=== PATIENT | female | born 1975 | race African-American/Black ===

== ENCOUNTER 2021-11-26 23:02 | Emergency (ER) | payer OTHER ==
[~2021-11-26] VITALS: Ht 167.6 cm; Wt 71.7 kg
[~2021-11-26 23:02] MED LIST: GABA-532 PO; OLME1TAB26 PO; OXYC-133 PO; OXYC30TA2 PO
--- NOTE | 2021-11-26 23:02 | NUR ---
patient brought in by wheel chair to bed 2A, patient states she has right ankle pain due to trauma. patient states she slipped and fell at the gym
--- NOTE | 2021-11-26 23:06 | NUR ---
Dr Caro at bedside
--- NOTE | 2021-11-26 23:28 | NUR ---
exterior interior specialist into do imaging at bedside.
[2021-11-26] MEDS ORDERED: IBUPROFEN 800 MG TABLET PO ONE (23:30)
[2021-11-26] MEDS ORDERED: IBUPROFEN 800 MG TABLET ONE (23:31)
[2021-11-27] MEDS ORDERED: OXYC-128 PO (00:50)
--- NOTE | 2021-11-27 01:00 | NUR ---
Patient discharged to home in stable condition. Written and verbal after care instructions given. Patient verbalizes understanding of instructions. Stressed follow up or return to ER for worsening s/s.
[2021-11-27 01:16] VITALS: BP 100/63
== END 2021-11-27 01:00 | disposition home or self-care (01) ==
LOC: ER 23:02
DX: S93.601A Unspecified sprain of right foot, initial encounter (principal); W18.41XA Slipping, tripping and stumbling without falling due to stepping on object, initial encounter; Y92.89 Other specified places as the place of occurrence of the external cause
CPT/HCPCS: 73630; A4663

== ENCOUNTER 2021-11-27 11:36 | Inpatient (IN) | payer OTHER ==
[~2021-11-27] VITALS: Ht 168.9 cm; Wt 69.9 kg
[~2021-11-27 11:36] MED LIST changes: +OXYC-128 PO
--- NOTE | 2021-11-27 12:32 | NUR ---
PT IS IN ROOM #1B. DR ELLIOTT EVALUATED THE PT.
[2021-11-27 12:56] LABS: HEMATOCRIT 34.6 % (31.2-41.9); MEAN CORPUSCULAR HEMOGLOBIN 31.5 uug (24.7-32.8); PLATELET COUNT (AUTO) 285 K/uL (179-408)
[2021-11-27 13:00] LABS: CARBON DIOXIDE 27 mmol/L (21-32); CHLORIDE 103 mmol/L (98-107); CREATININE 1.1 mg/dL (0.6-1.3); GLUCOSE 88 mg/dL (74-106); POTASSIUM 3.3 mmol/L (3.5-5.1); UREA NITROGEN, BLOOD 19 mg/dL (7-18)
[2021-11-27 13:06] LABS: ALANINE AMINOTRANSFERASE 18 U/L (14-59); ALKALINE PHOSPHATASE 58 U/L (50-136); ASPARTATE AMINOTRANSFERASE 12 U/L (15-37); BILIRUBIN,DIRECT 0.2 mg/dL (0.0-0.2); BILIRUBIN,TOTAL 0.9 mg/dL (0.2-1.0); TOTAL PROTEIN, SERUM 7.2 g/dL (6.4-8.2)
[2021-11-27 13:07] LABS: ACETAMINOPHEN < 2.0 ug/mL (10-30); ETHANOL < 3 MG/DL (0-0)
[2021-11-27 13:25] LABS: *BILIRUBIN,URIN NEGATIVE (NEGATIVE); *BLOOD, URINE NEGATIVE (NEGATIVE); *CLARITY,URINE CLEAR (CLEAR); *COLOR,URINE YELLOW (YELLOW); *KETONES,URINE NEGATIVE (NEGATIVE); *UROBILINOGEN,URINE 0.2 E.U./dl (NORMAL); LEUKOCYTE ESTERASE ,URINE NEGATIVE (NEGATIVE); NITRITE, URINE NEGATIVE (NEGATIVE); PH,URINE 7.5 (5.0-8.0); UGLUCOSE NEGATIVE (NEGATIVE)
[2021-11-27 13:39] LABS: THYROID STIMULATING HORMONE 0.778 mIU/mL (0.358-3.740)
[2021-11-27 13:48] LABS: *AMPHETAMINE, URINE NEGATIVE (NEGATIVE); *CANNABINOID, URINE NEGATIVE (NEGATIVE); *COCCAINE, URINE NEGATIVE (NEGATIVE); *OPIATE, URINE NEGATIVE (NEGATIVE); *PHENCYCLIDINE SCREEN,URINE NEGATIVE (NEGATIVE)
[2021-11-27] MEDS ORDERED: ACETAMINOPHEN 650 MG/20.3 ML LIQUID UDC PO ONE (15:30)
[2021-11-27] MEDS ORDERED: ACETAMINOPHEN ES 500 MG TABLET ONE (16:01)
--- NOTE | 2021-11-27 19:06 | NUR ---
RECEIVED REPORT FROM TIFFANIE. PT NOTED TO BE IN BED, NO SOB OR LABORED BREATHING, AFEBRILE. DENIES ANY PAIN/DISCOMFORT. A/O X4.
--- NOTE | 2021-11-27 20:35 | NUR ---
ASSISTED PT TO USE BED MEI. WELL TOLERATED.
--- NOTE | 2021-11-27 21:08 | NUR ---
Received report from Herlinda in ER for upcoming admission to Med surg.
--- NOTE | 2021-11-27 21:12 | NUR ---
GAVE REPORT TO SHAUN AREVALO.
--- NOTE | 2021-11-27 21:28 | NUR ---
Pt. admitted to MED SURG , under care of Dr. NORTON Belongs List completed
[2021-11-27] MEDS ORDERED: OXYCODONE/APAP 5-325 MG TABLET PO PRN (21:30)
[2021-11-27] MEDS ORDERED: GABAPENTIN 100 MG CAPSULE PO SCH (21:30)
--- NOTE | 2021-11-27 21:35 | NUR ---
Patient admitted to [facility]. AAO x4. C/O severe pain to neck, radiating to BUE and numbness in her fingertips. States she has severe pain to back as well and feels very stiff. Throbbing to right foot site, caty wrap in place. 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 Noted with hypotension, PO fluids provided and placed in Trendelenburg. No Chest pain or SOB at this time.
[2021-11-27 21:45] VITALS: BP 86/51
[2021-11-27] MEDS ORDERED: ACETAMINOPHEN 325 MG TABLET PO PRN (21:45)
[2021-11-27] MEDS ORDERED: ONDANSETRON 4 MG/2 ML VIAL IV PRN (21:45)
[2021-11-27] MEDS ORDERED: MAGNESIUM HYDROXIDE 30 ML LIQUID UDC PO PRN (21:45)
[2021-11-27] MEDS ORDERED: TEMAZEPAM 7.5 MG CAPSULE PO PRN (21:45)
--- NOTE | 2021-11-27 22:30 | NUR ---
Blood pressure remains low. B/p at 86/51. PO fluids provided, placed in Trendelenburg. Dr. Paulson made aware with orders for one time 500ml bolus of NS.
[2021-11-27] MEDS ORDERED: IV NORMAL SALINE 500 ML IV ONE (22:45)
[2021-11-28] VITALS (7 sets, daily range): BP systolic 85–102; BP diastolic 53–61
[2021-11-28] MEDS ORDERED: IV NS 1000 ML 1,000 ML IV ONE ×2 (00:30→06:45)
[2021-11-28] MEDS ORDERED: MIDODRINE HCL 5 MG TABLET PO SCH (00:30)
--- NOTE | 2021-11-28 00:30 | NUR ---
Patient B/P remains at 89/53. Asymptomatic. Dr. Lopez made aware with orders for one time Midodrine 10mg, 1 L NS bolus, and once SBP above 90 maintain NS at 100cc/hr. Orders noted and carried out.
--- NOTE | 2021-11-28 01:45 | NUR ---
B/P is 94/54 at this time, continued to be asymptomatic. Patient is continent, noted with vianey colored urine.
[2021-11-28] MEDS: IV NS 1000 ML 1,000 ML IV PRN ×2 (02:01→13:24)
[2021-11-28 06:28] LABS: HEMATOCRIT 30.5 % (31.2-41.9); MEAN CORPUSCULAR HEMOGLOBIN 31.9 uug (24.7-32.8); MEAN CORPUSCULAR VOLUME 91.7 fL (75.5-95.3); PLATELET COUNT (AUTO) 268 K/uL (179-408)
--- NOTE | 2021-11-28 06:30 | NUR ---
Patient remains asymptomatic. Continues with b/P 80/46 with pulse of 72. Dr. Lopez made aware with new orders for 1L NS bolus and start Midodrine 10mg po TID and hold for SBP above 120. Orders noted and carried out.
[2021-11-28 06:48] LABS: BILIRUBIN,TOTAL 0.8 mg/dL (0.2-1.0); CREATININE 0.9 mg/dL (0.6-1.3); MAGNESIUM 1.6 mg/dL (1.8-2.4); PHOSPHOROUS 3.5 mg/dL (2.5-4.9); POTASSIUM 3.2 mmol/L (3.5-5.1); TOTAL PROTEIN, SERUM 5.9 g/dL (6.4-8.2)
--- NOTE | 2021-11-28 07:54 | NUR ---
awake, alert and oriented, states feels slightly better, not as stiff as yesterday, able to turn to sides, c/o headach- medicated with Tylenol as ordered prn, BP 80/46, denies of any dizziness, will continue to monitor, safety measures maintained, call light within reach
[2021-11-28] MEDS ORDERED: MAGNESIUM OXIDE 400 MG TABLET PO ONE (09:00)
[2021-11-28] MEDS ORDERED: POTASSIUM CHLORIDE 20 MEQ TAB.PRT.SR PO ONE (09:00)
[2021-11-28] MEDS: MIDODRINE HCL 5 MG TABLET PO SCH ×3 (09:00→17:27)
[2021-11-28] MEDS ORDERED: OXYCODONE HCL 10 MG TAB.SR.12H PO SCH (09:00)
--- NOTE | 2021-11-28 12:00 | NUR ---
BP 91/61, asymptomatic, continue to monitor
--- NOTE | 2021-11-28 16:30 | NUR ---
seen by Dr Blair- aware of low BP- pt is being discharge today and driving home
--- NOTE | 2021-11-28 18:27 | NUR ---
discharge instructions given- verbalized understanding, BP 102/59, able to move legs and move better, saline lock removed- no swelling/redness noted on site
--- NOTE | 2021-11-28 19:15 | NUR ---
escorted to car per w/c in stable condition with all belongings
[2021-11-28] MEDS ORDERED: DOCUSATE SODIUM 100 MG CAPSULE PO SCH (21:00)
== END 2021-11-28 19:14 | disposition home or self-care (01) | DRG 57 ==
LOC: ER 11:36 → MEDSURG3 20:49
PROVIDERS: ADMIT Internal Medicine; ATTEND Internal Medicine
DX: G95.0 Syringomyelia and syringobulbia (principal); R53.1 Weakness; M19.90 Unspecified osteoarthritis, unspecified site; Z20.822 Contact with and (suspected) exposure to COVID-19; F41.9 Anxiety disorder, unspecified; M51.36 Other intervertebral disc degeneration, lumbar region; M48.061 Spinal stenosis, lumbar region without neurogenic claudication; S93.401D Sprain of unspecified ligament of right ankle, subsequent encounter; F11.11 Opioid abuse, in remission; X58.XXXD Exposure to other specified factors, subsequent encounter; F12.11 Cannabis abuse, in remission; Z87.898 Personal history of other specified conditions
CPT/HCPCS: 36415; 70030-TC; 71045; 72125; 72131; 83735; 84100; 84443; 85025; 87086; 93005; 97161; A4663; A9150; G0378; G0480; J7030; J7040